=== PATIENT | male | born 2000 | race Caucasian/White ===

== ENCOUNTER 2022-05-30 09:44 | Emergency (ER) | payer MEDICAID ==
[~2022-05-30] VITALS: Ht 157.5 cm; Wt 74.6 kg
[2022-05-30] MEDS ORDERED: LIDOCAINE HCL/EPINEPHRINE 1%-EPI 1:100,000 50 ML VIAL INFIL ONE (12:15)
[2022-05-30] MEDS: TETANUS, DIPHTHERIA, PERTUSSIS VAC/PF 0.5ML (>10YR OLD) IM ONE ×2 (12:33→12:37)
[2022-05-30] MEDS ORDERED: ACETAMINOPHEN 325MG TABLET PO ONE (13:00)
[2022-05-30 13:02] VITALS: BP 132/84
== END 2022-05-30 13:05 | disposition home or self-care (01) ==
LOC: ER 10:50
DX: S61.412A Laceration without foreign body of left hand, initial encounter (principal); X99.9XXA Assault by unspecified sharp object, initial encounter; Y93.89 Activity, other specified; Y92.89 Other specified places as the place of occurrence of the external cause
CPT/HCPCS: 73120; 90715; 99283; Z7610